=== PATIENT | female | born 1965 | race Hispanic/Latino ===

== ENCOUNTER 2017-09-18 03:53 | Emergency (ER) | payer BC ==
[2017-09-18 04:07] VITALS: O2SAT 98
[2017-09-18] MEDS ORDERED: Sodium Chloride 0.9% 1,000 ML IV STA (04:20)
[2017-09-18] MEDS ORDERED: HYDROmorphone 1 mg/ml ISec IVP STA ×2 (04:20→06:18)
--- NOTE | 2017-09-18 04:34 | ED PDOC ---
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 Patient reports pain woke her up from sleep. Reports her cousin had kidney stones, but denies any other family history of kidney stones. Patient denies any other complaints at this time. Time/Duration: 1-3 hours Symptom Onset: Sudden Symptom Course: Unchanged Activities at Onset: Rest Context: Home Past Medical History - Provider Review Nursing Documentation Reviewed: Yes - Cardiac Hx Cardiac Disorders: No - Pulmonary Hx Respiratory Disorders: No - Neurological Hx Neurological Disorder: No - HEENT Hx HEENT Disorder: No - Renal Hx Renal Disorder: No - Endocrine/Metabolic Hx Endocrine Disorders: No - Hematological/Oncological Hx Blood Disorders: No - Integumentary Hx Dermatological Disorder: No - Musculoskeletal/Rheumatological Hx Musculoskeletal Disorders: No - Gastrointestinal Other/Comment: stenosis throat - Genitourinary/Gynecological Hx Genitourinary Disorders: No - Psychiatric Hx Anxiety: Yes Hx Substance Use: No - Surgical History Other/Comment: throat many Family/Social History - Physician Review Nursing Documentation Reviewed: Yes Family/Social History: No Known Family HX Smoking Status: Never Smoked Hx Alcohol Use: No Hx Substance Use: No Allergies/Home Meds Allergies/Adverse Reactions: Allergies No Known Allergies Allergy (Verified 09/18/17 03:57) Home Medications: Home Meds Medication Instructions Recorded Confirmed Methotrexate Sodium [Trexall] 20 mg PO QWK 09/18/17 09/18/17 Olmesartan Medoxomil [Benicar] 20 mg PO DAILY 09/18/17 09/18/17 Pantoprazole Sodium [Protonix] 40 mg PO BID 09/18/17 09/18/17 Review of Systems - Physician Review All systems were reviewed & negative as marked: Yes - Review of Systems Constitutional: absent: Fevers Musculoskeletal: Other (left flank pain radiating to groin) Physical Exam Vital Signs Reviewed: Yes Vital Signs Temp Pulse Resp BP Pulse Ox 09/18/17 04:06 84 20 155/75 H 98 09/18/17 03:57 97.9 F Temperature: Afebrile Appearance: Positive for: Comfortable Pain Distress: Mild Mental Status: Positive for: Alert and Oriented X 3 - Systems Exam Head: Present: Atraumatic, Normocephalic Pupils: Present: PERRL Extroacular Muscles: Present: EOMI Conjunctiva: Present: Normal Mouth: Present: Moist Mucous Membranes Neck: Present: Normal Range of Motion Respiratory/Chest: Present: Clear to Auscultation, Good Air Exchange. No: Respiratory Distress, Accessory Muscle Use Cardiovascular: Present: Regular Rate and Rhythm, Normal S1, S2. No: Murmurs Abdomen: Present: Normal Bowel Sounds. No: Tenderness, Distention, Peritoneal Signs Back: Present: Normal Inspection Upper Extremity: Present: Normal Inspection. No: Cyanosis, Edema Lower Extremity: Present: Normal Inspection. No: Edema Neurological: Present: GCS=15, CN II-XII Intact, Speech Normal Skin: Present: Warm, Dry, Normal Color. No: Rashes Psychiatric: Present: Alert, Oriented x 3, Normal Insight, Normal Concentration Medical Decision Making ED Course and Treatment: 09/18/17 04:32 Impression: A 52 year old female with left flank pain radiating to groin. Plan: -- CT abd/pelvis -- labs -- Urinalysis -- Dilaudid, IV fluids, Toradol, Zofran -- Reassess and disposition Progress Notes: CT Abdomen and Pelvis Without Intravenous Contrast FINDINGS: Lower thorax: There is bibasilar atelectasis. ABDOMEN:Limitations: Absence of IV contrast decreases sensitivity for detecting solid organ and vascular abnormality and injury. Liver: Unremarkable. Gallbladder and bile ducts: Unremarkable. No ductal dilation. Pancreas: Unremarkable. No ductal dilation. Spleen: Unremarkable. No splenomegaly. Adrenals: Unremarkable. No mass. Kidneys and ureters: Left perinephric inflammatory change with moderate left hydroureteronephrosis and a 3-4 mm left mid ureter stone seen on image 98 cc representing acute obstructive uropathy. Stomach and bowel: Diverticulosis. No obstruction. No mucosal thickening. Appendix: Normal appendix. PELVIS: Bladder: There is nonspecific bladder wall thickening. This may be related to incomplete distention. Reproductive: Uterus is seen. High riding ovaries. ABDOMEN and PELVIS: Intraperitoneal space: Unremarkable. No free air. No significant fluid collection. Bones/joints: No acute fracture. No dislocation. Soft tissues: There is a fat-containing umbilical hernia. Vasculature: Pelvic phleboliths. No abdominal aortic aneurysm. Lymph nodes: Multiple subcentimeter mesenteric and ileocolic lymph nodes. Findings are nonspecific but may represent mesenteric adenitis. IMPRESSION: 1. Left perinephric inflammatory change with moderate left hydroureteronephrosis and a 3-4 mm left mid ureter stone seen on image 98 cc representing acute obstructive uropathy. Dictated and Authenticated by: Sammy Mehta MD 09/18/2017 5:43 AM Eastern Time ([place] & [place]) - Lab Interpretations Lab Results: 09/18/17 04:08 09/18/17 04:08 Lab Results 09/18/17 04:34: Urine Color Yellow, Urine Appearance Cloudy, Urine pH 6.0, Ur Specific [place] >= 1.030, Urine Protein >=300 H, Urine Glucose (UA) Negative, Urine Ketones Negative, Urine Blood Large H, Urine Nitrate Negative, Urine Bilirubin Negative, Urine Urobilinogen 1.0 H, Ur Leukocyte Esterase Trace H, Urine RBC 2 - 5, Urine WBC 2 - 5, Ur Epithelial Cells 1 - 3, Urine Bacteria Small, Urine HCG, Qual Negative 09/18/17 04:08: Sodium 139, Potassium 3.7, Chloride 99, Carbon Dioxide 31, Anion Gap 13, BUN 18, Creatinine 0.8, Est GFR ( Amer) > 60, Est GFR (Non- Af Amer) > 60, Random Glucose 146 H, Calcium 9.4, Total Bilirubin 0.4, AST 19, ALT 24, Alkaline Phosphatase 61, Total Protein 7.2, Albumin 4.0, Globulin 3.2, Albumin/Globulin Ratio 1.3 09/18/17 04:08: PT 10.4, INR 0.91 L 09/18/17 04:08: WBC 8.1, RBC 4.25, Hgb 11.5 L, Hct 36.5, MCV 85.9, MCH 27.1, MCHC 31.5, RDW 15.1 H, Plt Count 172, MPV 10.6, Gran % 75.1 H, Lymph % (Auto) 16.8 L, [place] % (Auto) 7.5 H, Eos % (Auto) 0.5 L, Baso % (Auto) 0.1, Gran # 6.09 , Lymph # 1.4, [place] # 0.6, Eos # 0.0, Baso # 0.01 I have reviewed the lab results: Yes - RAD Interpretation Radiology Orders: 09/18/17 04:21 ABD & PELVIS W/O PO OR IV CONT [CT] Stat - Medication Orders Current Medication Orders: Tamsulosin HCl (Flomax) 0.4 mg PO STAT STA Stop: 09/18/17 06:49 Discontinued Medications Hydromorphone HCl (Dilaudid) 1 mg IVP STAT STA Stop: 09/18/17 04:21 Last Admin: 09/18/17 04:30 Dose: 1 mg MAR Pain Assessment Document 09/18/17 04:30 AD (Rec: 09/18/17 04:47 AD [id number] Pain Reassessment Is this a pain reassessment? No Presence of Pain Presence of Pain Yes Pain Scale Used Pain Scale Used Numeric Description Intensity of Pain at present 10 Pain Behavior Crying Facial Grimacing Aggravating Factors Changing Position Exercise/Activity IVP Administration Document 09/18/17 04:30 AD (Rec: 09/18/17 04:47 [email or web address] Charges for Administration # of IVP Administrations 1 Hydromorphone HCl (Dilaudid) 1 mg IVP STAT STA Stop: 09/18/17 06:19 Last Admin: 09/18/17 06:35 Dose: 1 mg MAR Pain Assessment Document 09/18/17 06:35 AD (Rec: 09/18/17 06:36 AD [email or web address] Pain Reassessment Is this a pain reassessment? No Presence of Pain Presence of Pain Yes Pain Scale Used Pain Scale Used Numeric Description Intensity of Pain at present 10 Pain Behavior Moaning Facial Grimacing IVP Administration Document 09/18/17 06:35 AD (Rec: 09/18/17 06:36 AD [email or web address] Charges for Administration # of IVP Administrations 1 Sodium Chloride (Sodium Chloride 0.9%) 1,000 mls @ 999 mls/hr IV .Q1H1M STA Stop: 09/18/17 05:20 Last Admin: 09/18/17 04:30 Dose: 999 mls/hr eMAR Start Stop Document 09/18/17 04:30 AD (Rec: 09/18/17 04:47 AD [email or web address] Intravenous Solution Start Date 09/18/17 Start Time 04:30 Ketorolac Tromethamine (Toradol) 30 mg IVP STAT STA Stop: 09/18/17 04:21 Last Admin: 09/18/17 04:30 Dose: 30 mg MAR Pain Assessment Document 09/18/17 04:30 AD (Rec: 09/18/17 04:47 AD [place] [id number]) Pain Reassessment Is this a pain reassessment? No Pain Scale Used Pain Scale Used Numeric Description Intensity of Pain at present 10 Pain Behavior Crying Facial Grimacing IVP Administration Document 09/18/17 04:30 AD (Rec: 09/18/17 04:47 [email or web address] Charges for Administration # of IVP Administrations 1 Ondansetron HCl (Zofran Inj) 8 mg IVP STAT STA Stop: 09/18/17 04:21 Last Admin: 09/18/17 04:30 Dose: 8 mg IVP Administration Document 09/18/17 04:30 AD (Rec: 09/18/17 04:48 [id number] Charges for Administration # of IVP Administrations 1 - PA / REPAIR ARMATURE WINDER / Resident Statement MD/DO has reviewed & agrees with the documentation as recorded. - Scribe Statement The provider has reviewed the documentation as recorded by the Sherry Reaves Provider Scribe Attestation: All medical record entries made by the Scribe were at my direction and personally dictated by me. I have reviewed the chart and agree that the record accurately reflects my personal performance of the history, physical exam, medical decision making, and the department course for this patient. I have also personally directed, reviewed, and agree with the discharge instructions and disposition. Disposition/Present on Arrival - Present on Arrival Any Indicators Present on Arrival: No History of DVT/PE: No History of Uncontrolled Diabetes: No Urinary Catheter: No History of Decub. Ulcer: No History Surgical Site Infection Following: None - Disposition Diagnosis: Kidney stone on left side Disposition: HOME/ ROUTINE Disposition Time: 06:50 (SPOKE WITH DR BEJARANO) Patient Plan: Discharge Condition: GOOD Discharge Instructions (ExitCare): Kidney Stones (ED) Additional Instructions: CALL DR. BEJARANO'S OFFICE LATER TODAY FOR AN APPOINTMENT TOMORROW, Lina- Sorry this hurts so much. Percocet is for bad pain, it will upset your stomach that is what the Zofran is for and flomax may allow the stone to pass more quickly. Best- Dr. Rasheed Rocha Forms: [employer] (Niuean)
[2017-09-18 04:52] LABS: BASO # 0.01 K/mm3 (0.0-2.0); BASO % 0.1 % (0.0-3.0); EOS % 0.5 % (1.5-5.0); GRAN # 6.09 (1.4-6.5); GRAN % 75.1 % (50.0-68.0); HEMOGLOBIN 11.5 g/dL (12.0-16.0); LYMPH # 1.4 (1.2-3.4); LYMPH % 16.8 % (22.0-35.0); MEAN CELL VOLUME 85.9 fl (80.0-105.0); MEAN CORPUSCULAR HEMOGLOBIN 27.1 pg (25.0-35.0); MEAN CORPUSCULAR HGB CONC 31.5 g/dl (31.0-37.0); MEAN PLATELET VOLUME 10.6 fl (7.0-11.0); MONO # 0.6 (0.1-0.6); MONO % 7.5 % (1.0-6.0); RBC 4.25 10^6/uL (3.5-6.1); RED CELL DISTRIBUTION WIDTH 15.1 % (11.5-14.5); WHITE BLOOD COUNT 8.1 10^3/ul (4.5-11.0)
[2017-09-18 05:02] LABS: ALB/GLOB RATIO 1.3 (1.1-1.8); ALT/SGPT 24 U/L (7-56); AST/SGOT 19 U/L (14-36); BLOOD UREA NITROGEN 18 mg/dL (7-21); CALCIUM 9.4 mg/dL (8.4-10.5); GFR AFRICAN-AMERICAN > 60; GFR NON-AFRICAN AMERICAN > 60; INR 0.91 (0.93-1.08); PROTHROMBIN TIME 10.4 SECONDS (9.4-12.5)
[2017-09-18 05:15] LABS: URINE BILIRUBIN NEGATIVE (NEGATIVE); URINE BLOOD LARGE (NEGATIVE); URINE GLUCOSE (UA) NEGATIVE (NEGATIVE); URINE LEUKOCYTE ESTERASE TRACE Leu/uL (NEGATIVE); URINE NITRATE NEGATIVE (NEGATIVE); URINE PROTEIN >=300 mg/dL (<30 mg/dL)
[2017-09-18 05:27] LABS: URINE APPEARANCE CLOUDY (CLEAR); URINE COLOR YELLOW (YELLOW)
[2017-09-18 05:28] LABS: HCG,QUALITATIVE URINE NEGATIVE (NEGATIVE)
[2017-09-18 05:29] LABS: URINE BACTERIA SMALL (NEG)
--- NOTE | 2017-09-18 05:43 | CT ---
EXAM: CT Abdomen and Pelvis Without Intravenous Contrast CLINICAL HISTORY: 52 years old, female; Pain; Abdominal pain; Flank; Left; Additional info: L flank pain ? stone TECHNIQUE: Axial computed tomography images of the abdomen and pelvis without intravenous contrast. All CT scans at this facility use one or more dose reduction techniques, viz.: automated exposure control; ma/kV adjustment per patient size (including targeted exams where dose is matched to indication; i.e. head); or iterative reconstruction technique. 699 images are submitted. Coronal and sagittal reformatted images were created and reviewed. COMPARISON: No relevant prior studies available. FINDINGS: Lower thorax: There is bibasilar atelectasis. ABDOMEN:Limitations: Absence of IV contrast decreases sensitivity for detecting solid organ and vascular abnormality and injury. Liver: Unremarkable. Gallbladder and bile ducts: Unremarkable. No ductal dilation. Pancreas: Unremarkable. No ductal dilation. Spleen: Unremarkable. No splenomegaly. Adrenals: Unremarkable. No mass. Kidneys and ureters: Left perinephric inflammatory change with moderate left hydroureteronephrosis and a 3-4 mm left mid ureter stone seen on image 98 cc representing acute obstructive uropathy. Stomach and bowel: Diverticulosis. No obstruction. No mucosal thickening. Appendix: Normal appendix. PELVIS: Bladder: There is nonspecific bladder wall thickening. This may be related to incomplete distention. Reproductive: Uterus is seen. High riding ovaries. ABDOMEN and PELVIS: Intraperitoneal space: Unremarkable. No free air. No significant fluid collection. Bones/joints: No acute fracture. No dislocation. Soft tissues: There is a fat-containing umbilical hernia. Vasculature: Pelvic phleboliths. No abdominal aortic aneurysm. Lymph nodes: Multiple subcentimeter mesenteric and ileocolic lymph nodes. Findings are nonspecific but may represent mesenteric adenitis. IMPRESSION: 1. Left perinephric inflammatory change with moderate left hydroureteronephrosis and a 3-4 mm left mid ureter stone seen on image 98 cc representing acute obstructive uropathy.
[2017-09-18] MEDS ORDERED: Oxycodone/Acetaminophen 5/325 mg Tab PO STA (06:49)
[2017-09-18 07:53] VITALS: BP 156/85; PULSE 72; RESP 17; TEMP 98
== END 2017-09-18 07:30 | disposition home or self-care (01) ==
LOC: ED 03:53
DX: N20.0 Calculus of kidney (principal)
CPT/HCPCS: 74176; 80053; 81001; 84703; 85025; 85610; 96374; 96375; 96376; 99283; J1170; J1885; J2405; J7040

== ENCOUNTER 2019-01-09 09:02 | Outpatient (CLI) | payer BC | END 2019-01-09 09:03 | disposition home or self-care (01) | LOC: LAB 09:02 ==